=== PATIENT | female | born 1980 | race Caucasian/White ===

== ENCOUNTER 2020-08-26 19:10 | Emergency (ER) | payer OTHER, SELFPAY ==
[2020-08-26] MEDS ORDERED: Ketorolac Tromethamine 30 MG/ML VIAL ONE (19:35)
[2020-08-26] MEDS ORDERED: Morphine 10 MG/ML VIAL ONE (19:35)
[2020-08-26] MEDS ORDERED: Morphine 4 MG/ML VIAL ONE (21:33)
[2020-08-26] MEDS ORDERED: Ondansetron PF 4 MG/2 ML Vial ONE (21:33)
== END 2020-08-26 21:35 | disposition short-term general hospital (02) ==
LOC: BURERS 19:10
DX: S32.039A Unspecified fracture of third lumbar vertebra, initial encounter for closed fracture (principal); S32.029A Unspecified fracture of second lumbar vertebra, initial encounter for closed fracture; S32.049A Unspecified fracture of fourth lumbar vertebra, initial encounter for closed fracture; S01.01XA Laceration without foreign body of scalp, initial encounter; M79.642 Pain in left hand; M54.2 Cervicalgia; F17.210 Nicotine dependence, cigarettes, uncomplicated; V80.010A Animal-rider injured by fall from or being thrown from horse in noncollision accident, initial encounter
CPT/HCPCS: 70450; 72125; 72131; 72192; 96374; 96375; 96376; J1885; J2270; J2405